=== PATIENT | male | born 1995 | race Caucasian/White ===

== ENCOUNTER 2018-11-22 20:15 | Emergency (ER) | payer OTHER ==
[2018-11-22 20:20] VITALS: BP 155/100; PULSE 101; TEMP 97.5
[2018-11-22] MEDS ORDERED: AMOXICILLIN 8751 TAB PO (22:05)
[2018-11-23] MEDS ORDERED: AMOXICILLIN 8751 TAB PO (15:02)
== END 2018-11-22 22:29 | disposition home or self-care (01) ==
LOC: COL.ER 20:15
DX: S61.011A Laceration without foreign body of right thumb without damage to nail, initial encounter (principal); S61.217A Laceration without foreign body of left little finger without damage to nail, initial encounter; W54.0XXA Bitten by dog, initial encounter

== ENCOUNTER 2018-12-06 12:32 | Emergency (ER) | payer OTHER ==
[~2018-12-06 12:32] MED LIST: AMOXICILLIN 8751 TAB PO
[2018-12-06 12:39] VITALS: BP 139/77; PULSE 70; TEMP 98.5
== END 2018-12-06 12:55 | disposition home or self-care (01) ==
LOC: COL.ER 12:32
DX: S61.219D Laceration without foreign body of unspecified finger without damage to nail, subsequent encounter (principal); X58.XXXD Exposure to other specified factors, subsequent encounter